=== PATIENT | female | born 1940 | race Caucasian/White ===

== ENCOUNTER 2023-06-13 10:23 | Day surgery (SDC) | payer MEDICARE, BC ==
[2023-06-09 11:45] LABS: BASOPHILS # (AUTO) 0.1 X10'3 (0-0.2); BASOPHILS % (AUTO) 1.2 % (0-1); EOSINOPHILS # (AUTO) 0.1 X10'3 (0-0.9); EOSINOPHILS % (AUTO) 2.8 % (0-6); LYMPHOCYTES # (AUTO) 1.3 X10'3 (1.1-4.8); LYMPHOCYTES % (AUTO) 24.1 % (21-51); MEAN CORPUSCULAR HEMOGLOBIN 31.3 PG (27.0-31.0); MEAN CORPUSCULAR VOLUME 92.3 FL (78-98); MEAN PLATELET VOLUME 6.7 FL (7.4-10.4); MONOCYTES # (AUTO) 0.4 X10'3 (0-0.9); MONOCYTES % (AUTO) 8.5 % (2-12); NEUTROPHILS # (AUTO) 3.3 X10'3 (1.8-7.7); NEUTROPHILS % (AUTO) 63.4 % (42-75); PRE OP HEMATOCRIT 44.9 % (35.0-45.0); PRE OP HEMOGLOBIN 15.3 g/dL (12.0-16.0); PRE OP PLATELET COUNT 222 X10'3 (140-440); PRE OP WHITE BLOOD COUNT 5.3 10'3 (4.8-10.8); RED BLOOD COUNT 4.87 X10'6 (4.20-5.60); RED CELL DISTRIBUTION WIDTH 13.1 % (11.5-14.5)
[2023-06-09 12:19] LABS: ALBUMIN 3.5 G/DL (3.4-5.0); ALKALINE PHOSPHATASE 93 IU/L (46-116); BLOOD UREA NITROGEN 16 MG/DL (7-18); BUN/CREATININE RATIO 20.3 (10.0-20.0); CALCIUM 9.3 MG/DL (8.5-10.1); CHLORIDE 107 MMOL/L (99-107); CREATININE 0.79 MG/DL (0.40-0.90); PRE OP ALT 28 U/L (30-65); PRE OP ANION GAP 9 (8-16); PRE OP AST 19 U/L (10-37); PRE OP BILIRUB, TOTAL 1.2 MG/DL (0.0-1.0); PRE OP GLUCOSE 95 MG/DL (70-104); PRE OP POTASSIUM 4.3 MMOL/L (3.4-5.1); PRE OP SODIUM 143 MMOL/L (135-145); TOTAL CARBON DIOXIDE 26.8 MMOL/L (24-32); TOTAL PROTEIN 7.1 G/DL (6.4-8.2); eGFR 70 ML/MIN
[2023-06-12] MEDS: cefazolin 2gm/D5W 100mL 100 ML IV ONE (05:30)
[2023-06-12] MEDS: DOCUMENT DATE & TIME OF BETA-BLOCKER PO ONE (20:00)
[~2023-06-13] VITALS: Ht 160 cm; Wt 66.0 kg
[2023-06-13] VITALS (7 sets, daily range): BP systolic 126–181; BP diastolic 56–144; PULSE 53–65; RESP 12–15; TEMP 98.1; O2SAT 97–99
[~2023-06-13 10:23] MED LIST: METO-395 PO
[2023-06-13] MEDS: famotidine 20mg tablet PO ONE (11:26)
[2023-06-13] MEDS: ringers solution, lacted 1,000 ML IV SCH (11:26)
[2023-06-13] MEDS ORDERED: ondansetron/PF 4mg/2ml inj IV PRN (12:30)
[2023-06-13] MEDS ORDERED: ringers solution, lacted 1,000 ML IV SCH (12:30)
[2023-06-13] MEDS ORDERED: fentaNYL/PF 50MCG/1 ML 2ML syringe IV PRN ×2 (12:30)
[2023-06-13] MEDS ORDERED: acetaminophen 1,000mg/100ml IV 100 ML IV ONE (12:30)
[2023-06-13] MEDS ORDERED: meperidine/PF 25mg/ml syringe IV PRN ×3 (12:30)
[2023-06-13] MEDS ORDERED: hydrALAZINE 20mg/ml inj. IV PRN (12:30)
[2023-06-13] MEDS ORDERED: proCHLORperazine 10 MG/2 ml inj IV PRN (12:30)
[2023-06-13] MEDS ORDERED: labetalol 20mg/4ml (5mg/ml) syringe IV PRN (12:30)
[2023-06-13] MEDS ORDERED: midazolam 1 mg/ML 2ml injection ONE (12:41)
[2023-06-13] MEDS ORDERED: meperidine/PF 25mg/ml syringe ONE (12:43)
[2023-06-13] MEDS ORDERED: propofol inj 20 ML IV ONE (12:45)
[2023-06-13] MEDS: LIDOcaine 2% (20mg/ml) 5ml vial SQ ONE (12:52)
[2023-06-13] MEDS: BUPIVAcaine/PF 2.5mg/ml (0.25%) 10ml vial ONE (12:52)
== END 2023-06-13 13:55 | disposition home or self-care (01) ==
LOC: PAS 10:23
PROVIDERS: ATTEND Orthopaedic Surgery Hand Surgery
DX: G56.02 Carpal tunnel syndrome, left upper limb (principal); I10 Essential (primary) hypertension; Z79.899 Other long term (current) drug therapy; Z98.890 Other specified postprocedural states; Z80.9 Family history of malignant neoplasm, unspecified
CPT/HCPCS: 36415; 64721; 80053; 82948; 85025; 93005; J0690; J2175; J2250; J2704; J3490; J7030; J7120; Z7506; Z7512; A4215; A6449

== ENCOUNTER 2024-09-13 13:24 | Emergency (ER) | payer MEDICARE, BC ==
[~2024-09-13] VITALS: Ht 160 cm; Wt 71.8 kg
[2024-09-13 13:57] LABS: MEAN PLATELET VOLUME 6.8 FL (7.4-10.4); RED CELL DISTRIBUTION WIDTH 12.9 % (11.5-14.5)
[2024-09-13] MEDS: ketorolac trometh 30MG/ML vial 30 MG/ML VIAL IM ONE (14:18)
[2024-09-13 14:25] LABS: CREATININE 0.93 MG/DL (0.40-0.90); TOTAL CARBON DIOXIDE 26.9 MMOL/L (24-32); eCRCL 37 ML/MIN; eGFR 57 ML/MIN
[2024-09-13 14:51] LABS: LEUKOCYTE ESTERASE ,URINE SMALL (Neg); NITRITES, URINE NEGATIVE (Neg); OCCULT BLOOD,URINE TRACE-INTACT (Neg)
[2024-09-13 14:56] LABS: UA COLLECTION TYPE CLN CATCH MIDSTREAM
[2024-09-13 14:58] LABS: SQUAMOUS EPITHELIAL CELL,UR MODERATE /LPF (FEW)
[2024-09-13] MEDS: HYDROmorphone inj. 0.5 MG/0.5 ML DISP.SYRIN IV ONE (15:11)
[2024-09-13] MEDS: normal saline 1000ml 1,000 ML IV ONE (15:11)
[2024-09-13] MEDS: CefTRIAXone/D5W-Rocephin 1gm 50 ML IV ONE (16:22)
[2024-09-13 16:24] VITALS: BP 167/114; PULSE 52; RESP 16; O2SAT 98
--- NOTE | 2024-09-13 16:26 | RADIOLOGY REPORT ---
Indication: R flank pain Technique: CT axial images of the abdomen and pelvis are obtained without contrast. Coronal and sagit franchesca reformats were obtained. Radiation Dose Information: CTDI volume is 22 mGy. Dose-length product is 956 mGy*cm Comparison: None FINDINGS: There is limited interpretation of the abdomen and pelvis without administration of intravenous contr ast. Lung bases demonstrate atelectasis. Adrenal glands, spleen unremarkable in shape. Pancreatic parenchymal atrophy and calcifications. Hep atic cysts measure up to 7.[address] evidence for cholelithiasis. Bilateral renal peripelvic cysts. Mild bilateral hydroureteronephrosis. Stomach is partially distended. Small bowel loops are normal in caliber. Colonic diverticular disease. Moderate volume stool in the colon. Abdominal aortic atherosclerotic disease. Bladder distended. No free pelvic fluid. No inguinal lymph adenopathy. [id number] bilateral sacroiliac degenerative joint disease. Moderate to severe thoracolumbar de generative disc disease. Chronic T12 and L1 compression deformities with 30% loss height. 5 mm sofy listhesis of L4 upon L5. Moderate to advanced lumbar facet hypertrophic changes IMPRESSION: Limited evaluation without contrast. There is mild bilateral hydroureteronephrosis. No obstructing calculus identified. This could be seco ndary to underlying distended bladder. Recommend urology consultation for further evaluation. Bilateral renal peripelvic cysts. Hepatic cysts. Colonic diverticular disease. Other findings as described.
[2024-09-13] MEDS ORDERED: SULF1TAB49 PO (16:53)
--- NOTE | 2024-09-13 16:53 | Physician Documentation ---
History of Present Illness Chief Complaint: Flank Pain Stated Complaint: KIDNEY PAIN Time Seen by MD: 13:41 Mode of Arrival: Dropped Off HPI 84 year old female reports one week of progressively worsening R flank pain that comes and goes in waves and "spasms." Denies fever, urinary symptoms, N/V/D, cough, chest pain. Has history of kidney stones. Medication Reconciliation Allergies: Coded Allergies: morphine (Verified Allergy, Unknown, 12/28/10) Scheduled Metoprolol Succinate (Metoprolol Succinate), 0.5 TAB PO HS, (Reported) Past Medical History Smoking Status: Never smoker Review of Systems All Other Systems at this time: Reviewed and Negative Physical Exam Vital Signs: RN Vital Signs have been reviewed: Yes, Temperature: 98.1, Source: Oral, Heart Rate: 52, Respiratory Rate: 16, BP: 167/114, Pulse Oximetry: 98, Weight: 71.820 Physical Exam HEENT: PERRL, moist oral mucosa, EOMI Pulmonary: No respiratory distress Cardiac: RRR, no murmur, rub or gallop GI: nondistended, soft, nontender, no guarding, no rebound; +TTP R flank MSK: no deformity Skin: w/d/i, no rash Neuro: alert, nonfocal Psych: normal affect Progress Results/Orders Results/Orders Orders - TOO WARD MD Cult Urine + [place] Ct (09/13/24 15:03) Ct Abdomen Pelvis (09/13/24 15:46) Completed Orders - TOO WARD MD Cbc/Diff (09/13/24 13:29) BMP (09/13/24 13:29) Lipase (09/13/24 13:29) CMP (09/13/24 13:29) Ketorolac Trometh 30mg/Ml Vial (Toradol (09/13/24 13:50) Cyclobenzaprine Tablet (Flexeril Tablet) (09/13/24 13:50) Normal Saline 1000ml (0.9% Sodium Chlori (09/13/24 14:55) Hydromorphone 0.5 Mg/0.5 Ml/Pf (Dilaudid (09/13/24 14:55) Ua W/Microscopic, Cult If Ind (09/13/24 14:35) Ceftriaxone/[id number] 1gm (Rocephin 1 (09/13/24 15:50) Ct Abdomen Pelvis (09/13/24 15:46) Medications Received in ER Medications (Trade) Dose Ordered Sig/Suha Route PRN Reason Start Time Stop Time Status Last Admin Dose Admin (Toradol inj. 30mg/ml) 30 mg ONCE ONCE IM 09/13/24 13:50 09/13/24 13:59 DC 09/13/24 14:18 30 MG (Flexeril tablet) 10 mg ONCE ONCE PO 09/13/24 13:50 09/13/24 13:59 DC 09/13/24 14:13 10 MG Sodium Chloride 1,000 ml @ 1,000 mls/hr ONCE ONCE IV 09/13/24 14:55 09/13/24 15:54 DC 09/13/24 15:11 1,000 MLS/HR (Dilaudid inj.) 0.5 mg ONCE ONCE IV 09/13/24 14:55 09/13/24 14:56 DC 09/13/24 15:11 0.5 MG Ceftriaxone Sodium 50 ml @ 100 mls/hr ONCE ONCE IV 09/13/24 15:50 09/13/24 16:19 DC 09/13/24 16:22 100 MLS/HR Vital Signs 09/13/24 09/13/24 09/13/24 09/13/24 13:25 14:18 14:24 14:27 Temp 98.1 98.1 Pulse 64 50 Resp 15 16 18 B/P (MAP) 183/82 168/83 (111) Pulse Ox 98 98 09/13/24 09/13/24 15:11 16:24 Temp 98.1 Pulse 52 Resp 18 16 B/P (MAP) 167/114 (131) Pulse Ox 98 Laboratory Tests Test 09/13/24 13:44 09/13/24 14:35 White Blood Count 6.1 Red Blood Count 5.00 Hemoglobin 15.5 Hematocrit 44.7 Mean Corpuscular Volume 89.5 Mean Corpuscular Hemoglobin 31.1 H Mean Corpuscular Hemoglobin Concent 34.7 Red Cell Distribution Width 12.9 Platelet Count 228 Mean Platelet Volume 6.8 L Neutrophils (%) (Auto) 63.3 Lymphocytes (%) (Auto) 26.2 Monocytes (%) (Auto) 7.3 Eosinophils (%) (Auto) 2.3 Basophils (%) (Auto) 0.9 Neutrophils # (Auto) 3.8 Lymphocytes # (Auto) 1.6 Monocytes # (Auto) 0.4 Eosinophils # (Auto) 0.1 Basophils # (Auto) 0.1 CBC Comment Sodium Level 136 Potassium Level 4.3 Chloride Level 103 Carbon Dioxide Level 26.9 Anion Gap 6 L Blood Urea Nitrogen 16 Creatinine 0.93 H Estimated GFR/1.73 m2 57 BUN/Creatinine Ratio 17.2 Glucose Level 98 Calcium Level 9.7 Total Bilirubin 1.4 H Aspartate Amino Transf (AST/SGOT) 20 Alanine Aminotransferase (ALT/SGPT) 30 Alkaline Phosphatase 109 Total Protein 7.5 Albumin 4.1 Globulin 3.4 Albumin/Globulin Ratio 1.2 Lipase 33 Chemistry Comments Urine Specimen Description Cln catch midstream Urine Color Yellow Urine Clarity Slightly cloudy Urine pH 7.5 Urine Specific [place] 1.010 Urine Protein Negative Urine Glucose (UA) Negative Urine Ketones 15 H Urine Occult Blood Trace-intact Urine Nitrite Negative Urine Bilirubin Negative Urine Urobilinogen 0.2 Urine Leukocyte Esterase Small H Urine RBC 3-10 Urine WBC 5-10 H Urine Squamous Epithelial Cells Moderate Urine Transitional Epithelial Cells Few Urine Bacteria Few Urine Fine Granular Casts Urine Culture Indicated Indicated Volume Urine Centrifuged 10 ml Urine Comment Microbiology Date/Time Source Procedure Growth Status 09/13/24 15:03 Urine Clean Catch Midstream Urine Culture - Preliminary Culture received. Resulted Medical Decision Making Findings 84 year old female with acute R flank pain, appearing quite uncomfortable on arrival. Meds and fluids provided. CBc/CMP/UA demonstrated possible UTI but good kidney function and no leukocytosis. CT scan was read as largely negative but there does appear to be some hydronephrosis of the R kidney by my interpre tation. Will treat with ABx for possible UTI and discharge with presumptive diagnosis of kidney stone Patient's symptoms had largely resolved on reevaluation. Departure Disposition: 01 HOME / SELF CARE / HOMELESS Impression: Primary Impression: Flank pain, acute Condition: Stable Discharge Instructions: Kidney Stones Referrals: NO PRIMARY CARE PROVIDER (PCP) Prescriptions Sulfamethoxazole/Trimethoprim (Bactrim Ds Tablet) 800 Mg-160 Mg Tablet 1 TAB PO Q12H for 7 Days, #14 TAB Prov: TOO WARD MD 09/13/24 Education Educated: Patient Educated regarding: diagnosis, treatment, prognosis, need for follow up Signature Scribe Signature: . Attestation: . TOO WARD MD Sep 13, 2024 16:53
[2024-09-13 17:07] VITALS: TEMP 98.1
== END 2024-09-13 17:10 | disposition home or self-care (01) ==
LOC: ER 13:24
DX: R10.9 Unspecified abdominal pain (principal)
CPT/HCPCS: 36415; 74176; 80053; 81001; 83690; 85025; 87088; 96361; 96365; 96372; 96375; 99285; J0696; J1171; J1885; J7030